=== PATIENT | female | born 2005 | race Asian ===

== ENCOUNTER 2024-11-24 11:59 | Emergency (ER) | payer OTHER, SELFPAY ==
[2024-11-24 12:05] VITALS: BP 120/72; PULSE 84; RESP 16; TEMP 36.2; O2SAT 99; BMI 25.2
--- NOTE | 2024-11-24 13:00 | ED_ITS ---
HPI - Skin/Abscess/Foreign Bdy General Date Seen: 11/24/24 Chief complaint: Skin/Abscess/Foreign Body Stated complaint: rash on legs Time Seen by Provider: 11/24/24 12:26 Source: patient Mode of arrival: ambulatory Limitations: no limitations History of Present Illness HPI narrative: Patient is a 19-year-old female presenting to emergency department for rash to her legs. She states 3 days ago she noticed a small rash behind her right knee. Since then has been starting to spread throughout her posterior right thigh and is now spread to her left thigh and the anterior aspect of the thighs. Has not had symptoms like this before. Denies fevers or chills. Does not use tampons. Has not had any weakness, numbness, chest pain, shortness of breath, abdominal pain. Not aware of any sick contacts. Denies any recent travel. She is eating international student from [place] but does not been there in over a year and last travel outside of [place] in March when she went to [facility]. No other concerns noted. Related Data Previous Rx's ?Medication ?Instructions ?Recorded cetirizine 10 mg chewable tablet 10 mg PO DAILY #5 tab s 11/24/24 famotidine 20 mg tablet (Pepcid) 20 mg PO DAILY #5 tab s 11/24/24 prednisone 20 mg tablet 40 mg (2 x 20 mg) PO DAILY # 10 tabs 11/24/24 Allergies Allergy/AdvReac Type Severity Reaction Status Date / Time No Known Drug Allergies Allergy Verified 11/24/24 12:19 Review of Systems Status of ROS: Reports: 10 or more systems reviewed and unremarkable except as noted in History and below Exam Narrative: Exam Narrative: Const: Well-nourished, Well-developed, in mild distress Eyes: PERRL, no conjunctival injection, and symmetrical lids HENT: Atraumatic external nose and ears. Moist mucous membranes. Neck: Symmetric, trachea midline, No thyromegaly. CVS: RRR, No murmurs or gallops. Peripheral pulses 2+ and equal in all extremities RESP: Unlabored respiratory effort. Clear to auscultation bilaterally. GI: Nontender/Nondistended, No rebound or guarding. MSK:Extremities w/o deformity, Normal Active ROM Skin: Warm, Dry. Diffuse macular papular rash to the posterior right thigh that starts in the knee and goes up throat the posterior thigh. She has small or rash on the anterior right thigh and throughout the left side. Warm to the to uch. Negative nikolsky's sign. Neuro: Normal Muscle tone, No focal neurological deficits. Psych: Awake, Alert, & Oriented x3. Appropriate mood and affect. Const: Vital Signs, click to edit/add: Vital Signs - 24 hr 11/24/24 12:05 Temperature 97.1 F L Pulse Rate [Pulse Oximeter] 84 Respiratory Rate 16 Blood Pressure [Ri ght Upper Arm] 120/72 Pulse Oximetry 99 Oxygen Delivery Me thod Room Air Course Vital Signs Vital signs: Initial Vital Signs Temperature 97.1 F L 11/24/24 12:05 Temperature Source Temporal Artery Scan 11/24/24 12:05 Pulse Rate 84 11/24/24 12:05 Respiratory Rate 16 11/24/24 12:05 Blood Pressure 120/72 11/24/24 12:05 Blood Pressure Mean 88 11/24/24 12:05 Blood Pressure Position Sitting 11/24/24 12:05 Pulse Oximetry 99 11/24/24 12:05 Oxygen Delivery Method Room Air 11/24/24 12:05 Vital Signs Temperature 97.1 F L 11/24/24 12:05 Pulse Rate 84 11/24/24 12:05 Respiratory Rate 16 11/24/24 12:05 Blood Pressure 120/72 11/24/24 12:05 Pulse Oximetry 99 11/24/24 12:05 Oxygen Delivery Method Room Air 11/24/24 12:05 Temperature 97.1 F L 11/24/24 12:05 Pulse Rate 84 11/24/24 12:05 Respiratory Rate 16 11/24/24 12:05 Blood Pressure 120/72 11/24/24 12:05 Pulse Oximetry 99 11/24/24 12:05 Oxygen Delivery Method Room Air 11/24/24 12:05 MDM - Skin/Abscess/Foreign Bdy MDM Narrative Medical decision making narrative: Patient is a 19-year-old female presenting to emergency department for rash on her bilateral thighs. Unclear was the cause of this rash. Possible bug bites or allergic reaction. Does not appear to be toxic shock she or staphylococcal scalded skin syndrome. Does not appear to be Coleman-Canelo syndrome. she has not take any medication is not appear to be dressed syndrome. Will do basic lab work to look for any abnormalities. No signs of anaphylaxis. Lab work shows no acute concerning abnormalities. I cannot really say what is causing this rash I will treat it as an allergic reaction. I informed the patient that if it is not improving with the medication she needs to see Dermatology. She understands and agrees with this plan Lab Data Labs: Lab Results 11/24/24 11/24/24 Range/Units 13:04 13:10 WBC 6.79 (4.50-11.00) K/uL RBC 4.46 (4.00-5.20) m/uL Hgb 13.7 (12.0-16.0) gm/dL Hct 41.1 (33.0-51.0) % MCV 92 (80-100) fL MCH 31 (26-34) pg MCHC 33 (32-36) gm/dL RDW Coeff of Rebecca 11.6 (11.5-15.5) % Plt Count 303 (140-440) K/uL Neut % (Auto) 58.1 (42.0-72.0) % Lymph % (Auto) 30.3 (20-44) % [place] % (Auto) 7.4 (0.0-11.0) % Eos % (Auto) 3.7 (0.0-7.0) % Baso % (Auto) 0.4 (0.0-3.0) % Neut # (Auto) 3.94 (1.7-7.0) K/uL Lymph # (Auto) 2.06 (0.90-2.90) K/uL [place] # (Auto) 0.50 (0.00-0.90) K/UL Eos # (Auto) 0.25 (0.00-0.50) K/uL Baso # (Auto) 0.03 (0.00-0.30) K/uL Abs Immat Gran (auto) 0.01 (0.00-0.30) K/uL Imm/Tot Granulo (auto) 0.1 % ESR 10 (2-20) mm/hr Sodium 141 (135-149) mmol/L Potassium 4.1 (3.6-5.1) mmol/L Chloride 104 (96-114) mmol/L Carbon Dioxide 28 (20-32) mmol/L Anion Gap 9 (7-15) mEq/L BUN 17 (5-24) mg/dL Creatinine 1.0 (0.5-1.5) mg/dL Estimated Creat Clear 87.27 Estimated GFR 83 ml/min Glucose 75 (60-115) mg/dL Calcium 9.7 (8.4-10.6) mg/dL Total Bilirubin 0.7 (0.1-1.5) mg/dL AST 28 (12-35) U/L ALT 20 (4-35) U/L Alkaline Phosphatase 52 (40-150) U/L C-Reactive Protein 0.7 (0.5-1.0) mg/dL Total Protein 8.0 (6.0-8.3) g/dL Albumin 4.7 (3.3-5.0) g/dL Urine Color Yellow (Yellow) Urine Appearance Slightly Cloudy A (Clear) Urine pH 5.5 (5.0-8.5) Ur Specific [place] >= 1.030 (1.000-1.030) Urine Protein Negative (Negative) Urine Glucose (UA) Negative (Negative) Urine Ketones Negative (Negative) Urine Blood Negative (Negative) Urine Nitrite Negative (Negative) Urine Bilirubin Negative (Negative) Urine Urobilinogen 0.2 (0.2-1.0) Ur Leukocyte Esterase Negative (Negative) Urine RBC 0-2 (0-2) Urine WBC 5-10 A (0-5) Ur Squamous Epith Cells Moderate A (None-Few) Urine Bacteria Moderate A (None) Urine Mucus Moderate A (None) Discharge Plan Discharge Clinical Impression: Rash Patient Disposition: Home, Self-Care Condition: Stable Instructions: Acute Rash (ED) Additional Instructions: Take medications as prescribed. If symptoms are not improving into next week you should follow-up with Dermatology. In the area we have [facility]. Call them at [phone] extension [phone] to schedule an appointment. Return to emergency department for any other new or worsening symptoms Prescriptions: New prednisone 20 mg tablet 40 mg PO DAILY Qty: 10 0RF famotidine [Pepcid] 20 mg tablet 20 mg PO DAILY Qty: 5 0RF cetirizine 10 mg tablet,chewable 10 mg PO DAILY Qty: 5 0RF Follow Up/Referrals: Provider,Not a Local [Primary Care Provider, Family Practice] Stand Alone Forms: [employer] [employer] Info Instructions
[2024-11-24 13:12] LABS: Hematocrit 41.1 % (33.0-51.0); Hemoglobin* 13.7 gm/dL (12.0-16.0); Immature Granulocytes Abs Auto 0.01 K/uL (0.00-0.30); Immature Granulocytes Pct Auto 0.1 %; Lymphocytes Absolute Auto 2.06 K/uL (0.90-2.90); Mean Corpuscular HGB Conc 33 gm/dL (32-36); Mean Corpuscular Hemoglobin 31 pg (26-34); Mean Corpuscular Volume 92 fL (80-100); RDW Coefficient of Variation % 11.6 % (11.5-15.5); Red Blood Count 4.46 m/uL (4.00-5.20); White Blood Count* 6.79 K/uL (4.50-11.00)
[2024-11-24 13:26] LABS: Albumin* 4.7 g/dL (3.3-5.0); Chloride* 104 mmol/L (96-114)
[2024-11-24 13:27] LABS: Potassium* 4.1 mmol/L (3.6-5.1); Sodium* 141 mmol/L (135-149)
[2024-11-24 13:29] LABS: Alanine Aminotransferase* 20 U/L (4-35); Aspartate Amino Transferase* 28 U/L (12-35); Blood Urea Nitrogen* 17 mg/dL (5-24); Creatinine* 1.0 mg/dL (0.5-1.5); Est. Creatinine Clearance* 87.27; Estimated Glomerular Filt Rate 83 ml/min
[2024-11-24 13:30] LABS: Alkaline Phosphatase* 52 U/L (40-150); Anion Gap 9 mEq/L (7-15); Bilirubin Total* 0.7 mg/dL (0.1-1.5); Calcium* 9.7 mg/dL (8.4-10.6); Carbon Dioxide* 28 mmol/L (20-32); Glucose* 75 mg/dL (60-115); Slide Review Reflex No; Total Protein* 8.0 g/dL (6.0-8.3)
[2024-11-24 14:03] LABS: Appearance Urine Slightly Cloudy (Clear)
[2024-11-24 14:32] LABS: Erythrocyte SedimentationRate* 10 mm/hr (2-20)
== END 2024-11-24 15:02 | disposition home or self-care (01) ==
PROVIDERS: Emergency Provider Student in an Organized Health Care Education/Training Program
DX: R21 Rash and other nonspecific skin eruption (principal)
CPT/HCPCS: 36415; 80053; 81001; 85025; 85651; 86140; 87086; 99283